=== PATIENT | male | born 1960 | race Caucasian/White ===

== ENCOUNTER 2018-04-06 16:00 | Outpatient (CLI) | payer BC | END 2018-04-06 16:01 | disposition home or self-care (01) | LOC: SLEEPLAB 16:00 | PROVIDERS: ATTEND Internal Medicine | DX: G47.33 Obstructive sleep apnea (adult) (pediatric) (principal); K21.9 Gastro-esophageal reflux disease without esophagitis; I10 Essential (primary) hypertension; E66.9 Obesity, unspecified; R35.1 Nocturia; R06.83 Snoring; R53.83 Other fatigue; R09.89 Other specified symptoms and signs involving the circulatory and respiratory systems; Z68.35 Body mass index [BMI] 35.0-35.9, adult | CPT/HCPCS: 95806 ==

== ENCOUNTER 2018-07-10 07:08 | Outpatient (CLI) | payer BC ==
--- NOTE | 2018-07-10 08:05 | ULT ---
RIGHT UPPER QUADRANT ULTRASOUND: Date: 07/10/18 COMPARISON: None. HISTORY: Elevated liver function tests. TECHNIQUE: Multiplanar Chun scale sonographic imaging of the right upper quadrant provided. FINDINGS: The pancreas is not well seen secondary to bowel gas. The hepatic parenchyma is heterogeneous and ech ogenic, suggesting hepatocellular disease, such as steatosis. No discrete focal liver lesion. No intr ahepatic biliary dilatation. The common bile duct measures 2-3 mm, within normal limits. No gallbladder wall thickening or pericholecystic fluid. No gallstones are seen. The pomology teacher repo rts a negative Brenner's sign. The right kidney measures 14.0 cm craniocaudal dimension and demonstrat es no evidence for stone, hydronephrosis, or mass lesion. IMPRESSION: Heterogeneity of the hepatic parenchyma as detailed above. No evidence for cholelithiasis, cholecysti tis, or biliary dilatation. POS: RAJESH
== END 2018-07-10 07:09 | disposition home or self-care (01) ==
LOC: SCSULT 07:08
PROVIDERS: ATTEND Family Medicine
DX: R74.8 Abnormal levels of other serum enzymes (principal); K76.89 Other specified diseases of liver
CPT/HCPCS: 76705

== ENCOUNTER 2018-10-17 15:05 | Outpatient (CLI) | payer BC | END 2018-10-17 15:06 | disposition home or self-care (01) | LOC: DTY/OP 15:05 | PROVIDERS: ATTEND Family Medicine | DX: E11.9 Type 2 diabetes mellitus without complications (principal) | CPT/HCPCS: 97802 ==

== ENCOUNTER 2019-01-09 08:45 | Outpatient (CLI) | payer BC ==
--- NOTE | 2019-01-09 10:11 | MRI ---
EXAM: MRI left shoulder PROVIDED CLINICAL HISTORY: Pain COMPARISON: None FINDINGS: Evaluation is limited by patient motion. There is a near full thickness, partial width tear involving the distal supraspinatus tendon at the f ootplate. The remainder of the distal conjoined tendon at the footplate appears thickened and of inhomogeneous signal intensity. There is suspected proximal retraction of rotator cable, suspicious f or chronic undersurface tearing and associated granulation tissue. There is focal low-grade partial thickness undersurface tearing involving the posterior infraspinatus tendon just proximal to the foot plate. The long head biceps tendon appears grossly intact and normally located. Glenohumeral articular carti eric and glenoid labrum are not well evaluated on this examination. The amount of fluid within the glenohumeral joint appears physiologic. There is no significant subacr omial subdeltoid bursal fluid present. Acromioclavicular joint osteoarthrosis is demonstrated, producing prominent mass effect upon the subj acent supraspinatus. Rotator cuff muscular volume appears preserved. No focal concerning regional marrow or muscular signal abnormality apparent. The subscapularis and teres minor tendons appear inta ct. IMPRESSION: 1. High-grade partial-thickness bursal surface tear involving the distal supraspinatus tendon at the footplate. This is superimposed upon changes of tendinosis and probable chronic partial thickness undersurface tearing with associated granulation tissue formation. 2. Acromioclavicular joint osteoarthrosis with mass effect upon the subjacent supraspinatus. 3. Limited study due to patient motion.
--- NOTE | 2019-01-09 10:52 | RAD ---
2 VIEWS SKULL: Date: 01/09/19 INDICATION: History of nail injury to the left eye requiring reconstructive surgery. COMPARISON: None. FINDINGS: No retained foreign body is seen within the orbits. Visualized paranasal sinuses are clear. No acute fracture is evident. IMPRESSION: No retained metallic foreign body involving the orbits that would preclude a MRI examination. POS: OFF
== END 2019-01-09 08:46 | disposition home or self-care (01) ==
LOC: BICMRI 08:45
PROVIDERS: ATTEND Family Medicine
DX: M75.102 Unspecified rotator cuff tear or rupture of left shoulder, not specified as traumatic (principal); M19.012 Primary osteoarthritis, left shoulder; S46.812A Strain of other muscles, fascia and tendons at shoulder and upper arm level, left arm, initial encounter
CPT/HCPCS: 70250

== ENCOUNTER 2019-01-22 08:24 | Outpatient (CLI) | payer BC ==
[2019-01-22 10:05] LABS: #Basophils 0.1 thou/uL (0.0-0.2); #Eosinphils 0.1 thou/uL (0.0-0.7); #Lymphocytes 2.8 thou/uL (1.20-3.40); #Monocytes 0.5 thou/uL (0.11-0.59); #Neutrophils 4.4 thou/uL (1.40-6.50); %Basophils 0.7 % (0.0-1.0); %Eosinophils 1.7 % (0.0-10.0); %Lymphocytes 35.5 % (21.0-51.0); %Monocytes 5.8 % (0.0-10.0); %Neutrophils 56.3 % (42.0-75.0); Hemoglobin 16.2 g/dL (14.0-18.0); Mean Corpuscular HGB CONC 35.3 g/dL (32.0-36.0); Mean Platelet Volume 7.6 fL (7.4-10.4); Platelet Count 191 thou/uL (130-400); Red Blood Cell (RBC) Count 5.41 mill/uL (4.70-6.10); White Blood Cell (WBC) Count 7.8 thou/uL (4.8-10.8)
[2019-01-22 10:15] LABS: Anion Gap 12 mmol/L (10-20); BUN (Urea Nitrogen) 22 mg/dL (8.4-25.7); Calc. Creatinine Clearance 0 mL/min (70-130); Calcium 9.4 mg/dL (7.8-10.44); Carbon Dioxide 24 mmol/L (22-29); Chloride 106 mmol/L (98-107); Estimated GFR-MDRD Greater than 90; Glucose 114 mg/dL (70-105); Potassium 4.2 mmol/L (3.5-5.1); Sodium 138 mmol/L (136-145)
== END 2019-01-22 08:25 | disposition home or self-care (01) ==
LOC: LABBT 08:24
PROVIDERS: ATTEND Orthopaedic Surgery
DX: Z01.818 Encounter for other preprocedural examination (principal); M75.102 Unspecified rotator cuff tear or rupture of left shoulder, not specified as traumatic
CPT/HCPCS: 80048; 85025; 93005; 93010

== ENCOUNTER 2019-01-24 06:13 | Day surgery (SDC) | payer BC ==
[2019-01-22 08:35] VITALS: BMI 35.2
[2019-01-24] MEDS ORDERED: Midazolam HCl 2 mg/2 ml Vial ONE (07:40)
[2019-01-24] MEDS ORDERED: Fentanyl 100 MCG/2 ML VIAL ONE (07:40)
[2019-01-24] MEDS ORDERED: Ondansetron PF 4 MG/2 ML Vial IVP PRN (08:43)
[2019-01-24] MEDS ORDERED: HYDROcodone/Acetaminophen 5/325 mg Tablet PO PRN ×2 (08:43)
[2019-01-24] MEDS ORDERED: Promethazine HCl 25 MG/ML VIAL IM PRN (08:43)
[2019-01-24] MEDS ORDERED: Ketorolac Tromethamine 30 MG/ML VIAL IVP PRN (08:43)
[2019-01-24] MEDS ORDERED: Ropivacaine 0.2% 550 ML 550 ML NERVE BLCK SCH (08:43)
[2019-01-24] MEDS ORDERED: traMADol HCl 50 MG TAB PO PRN ×2 (08:43)
[2019-01-24] MEDS ORDERED: Zolpidem Tartrate 5 MG TAB PO PRN (08:43)
[2019-01-24] MEDS ORDERED: Bupivacaine/Epinephrine 0.25% 30 ML VIAL ONE (09:33)
--- NOTE | 2019-01-24 12:06 | OP ---
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 POSTOPERATIVE DIAGNOSES: Left shoulder impingement, rotator cuff tear, biceps tendon instability with degenerative superior labrum anterior and posterior tear, and acromioclavicular joint arthritis. PROCEDURES PERFORMED: 1. Left shoulder arthroscopy with subacromial decompression. 2. Left shoulder arthroscopic rotator cuff. 3. Open biceps tenodesis. 4. Open distal clavicle excision. TAGMAN: Berhane Lea PA-C BLOOD LOSS: 25. COMPLICATIONS: None. ANESTHESIA: He had general anesthetic. He also had a preoperative block. IMPLANTS: Include one BioComposite 4.75 SwiveLock device for the rotator cuff repair and also a 7 x 23 BioComposite Bio-Tenodesis screw. DISPOSITION: He did go to the recovery room in stable condition. INDICATIONS: A 58-year-old male, who has been having problems with the shoulder for quite some time. At this time, he has failed nonoperative treatment. At this time, he opted to have surgery. DESCRIPTION OF PROCEDURE: After all appropriate consent forms were explained and signed, he was taken back to the operating room and at this time, he was given general anesthetic. Once the level of anesthesia was appropriate, the patient was rolled into the right lateral decubitus position with all bony prominences well padded. Axillary roll was placed beneath the right axilla and a vallecillo bag was inflated to hold him in this position. All bony problems were well padded. The arm was then taken through full range of motion and suspended with 15 pounds in standard arthroscopic fashion. The left shoulder and upper extremity were prepped and draped in standard surgical fashion. Bony anatomical landmarks were then drawn out. The subacromial space was infiltrated with Marcaine with epinephrine. Posterior portal was established. Scope was placed into the shoulder joint. Anterior working portal was then made using a needle localization technique. Diagnostic arthroscopy commenced in the joint. The humeral head and glenoid were in excellent condition. The superior labrum had degenerative SLAP tear. Remaining labrum was in pretty good condition. There was significant amount of synovitis circumferentially. The patient did have an undersurface cuff tear, this was debrided back to good tissue and the area of tear was noted with a needle. At this time, the remaining portion of the joint evaluation was found to be normal. We then placed a green cannula anteriorly. We used an 18-gauge needle to place the stitch through the biceps tendon and cut the biceps off using the surface energy device. At this time, scope was replaced into the subacromial space. Lateral working portal was made. Bursa was removed and at this time, where the needle was noted, a probe was used and it went directly down through the scant amount remaining tissue leading us directly into the tear. At this time, the area was debrided with a shaver back to good tissue. We did remove soft tissue off the tuberosity and this tear was felt to be so small that we would do a repair using one inverted horizontal mattress stitch placed down through an anchor laterally. Before doing this, we did remove soft tissue off the undersurface of the acromion. We took down limited the acromion using the shaver and we then did debride the soft tissue from around the distal clavicle and the AC joint. The distal clavicle was found to be pushing directly onto the muscle of the rotator cuff tendon. Again, the needle was used to nicol the AC joint at this time. We then placed a passport cannula laterally and through the passport, we placed an inverted horizontal mattress suture using the FiberTape. This was then pulled down laterally and placed in the 4.75 SwiveLock. This gave us our nice primary repair. We did take the stitch and placed a simple suture directly into the middle portion, where there was a small dog-ear and this flatten this out nicely. At this time, all sutures were cut. Arm was taken through full range of motion. The repair was evaluated through the lateral portal as well finding a nice secure repair. At this time, we then removed the scope. We turned our distal clavicle excision. A 15 blade was used to make an oblique incision over the AC joint down through skin. Bovie was used to coagulate any brisk venous bleeding. Full-thickness periosteal flaps were then taken anterior and posterior to expose the distal clavicle. Hohmann retractors were placed. A saw was used to remove 1 cm distal clavicle. Edges were smoothed off with a rasp and a small amount of bone wax was placed onto the bleeding cancellous bone. This area was thoroughly irrigated and dried. Multiple Vicryl sutures were used to close our periosteal sleeve. A 2-0 Vicryl and nylon sutures were then used to close the skin. We then turned our attention to the biceps. We made another incision with a 15 blade down through skin. Bovie was used again to coagulate any brisk venous bleeding. We sharply entered the deltoid fascia. We then used finger dissection in-line with the fibers to get down to the humerus and the underlying transverse humeral ligament. This was opened up. The biceps tendon was pulled out into the wound. It was then sutured in standard fashion and the intra-articular portion of the biceps was removed. At this time, we sized this to be right at a 7. Therefore, we drilled with a 7.5. We placed our pin. We reamed with a 7.5 to a depth of 25. We then placed a 7 x 23 BioComposite Bio-Tenodesis screw in standard fashion. Sutures were tied over top of this, so that the screw would not back out. We then allowed this to close upon itself. We thoroughly irrigated and dried. A running Vicryl was used to close our deltoid fascia, 2-0 Vicryl, and sutures again were used to close our skin incision. Portals were closed with simple nylon stitch. Bulky sterile dressing was applied. The patient was awakened. He was taken to recovery room in stable condition. All counts were correct at the end of the case and he did receive preoperative IV antibiotics. Job ID: [id number]
[2019-01-24] MEDS ORDERED: Morphine 4 MG/ML VIAL ONE (12:12)
[2019-01-24] MEDS ORDERED: Ketorolac Tromethamine 30 MG/ML VIAL ONE (12:58)
== END 2019-01-24 16:15 | disposition home or self-care (01) ==
LOC: SDC 06:13
PROVIDERS: ATTEND Orthopaedic Surgery
PROC: 0RNK4ZZ Release Left Shoulder Joint, Percutaneous Endoscopic Approach (ICD-10-PCS; principal; 2019-01-24)
PROC: 0RHK44Z Insertion of Internal Fixation Device into Left Shoulder Joint, Percutaneous Endoscopic Approach (ICD-10-PCS; principal; 2019-01-24)
PROC: 3E0T3BZ Introduction of Anesthetic Agent into Peripheral Nerves and Plexi, Percutaneous Approach (ICD-10-PCS; principal; 2019-01-24)
PROC: 0LQ24ZZ Repair Left Shoulder Tendon, Percutaneous Endoscopic Approach (ICD-10-PCS; principal; 2019-01-24)
PROC: 0PBB0ZZ Excision of Left Clavicle, Open Approach (ICD-10-PCS; principal; 2019-01-24)
PROC: 0LS20ZZ Reposition Left Shoulder Tendon, Open Approach (ICD-10-PCS; principal; 2019-01-24)
DX: M25.312 Other instability, left shoulder (principal); M75.112 Incomplete rotator cuff tear or rupture of left shoulder, not specified as traumatic; M25.812 Other specified joint disorders, left shoulder; S43.432A Superior glenoid labrum lesion of left shoulder, initial encounter; M19.012 Primary osteoarthritis, left shoulder; M65.812 Other synovitis and tenosynovitis, left shoulder; G89.18 Other acute postprocedural pain; I10 Essential (primary) hypertension; I48.91 Unspecified atrial fibrillation; K21.9 Gastro-esophageal reflux disease without esophagitis; I42.9 Cardiomyopathy, unspecified; H54.62 Unqualified visual loss, left eye, normal vision right eye; Z79.899 Other long term (current) drug therapy; Z88.5 Allergy status to narcotic agent; Z88.8 Allergy status to other drugs, medicaments and biological substances
CPT/HCPCS: A4306; J0690; J1885; J2250; J2270; J2795; J3010

== ENCOUNTER 2020-05-04 12:01 | Inpatient (IN) | payer BC ==
[~2020-05-04 12:01] MED LIST: Iopamidol-370 76% 500 ML 1 ML ONE
[2020-05-04] MEDS ORDERED: Dexamethasone 10 MG/ML VIAL ONE (12:37)
[2020-05-04 12:53] LABS: #Eosinphils 0.1 thou/uL (0.0-0.7); #Lymphocytes 2.3 thou/uL (1.20-3.40); #Monocytes 0.5 thou/uL (0.11-0.59); #Neutrophils 3.4 thou/uL (1.40-6.50); %Basophils 0.1 % (0.0-1.0); %Eosinophils 1.2 % (0.0-10.0); %Lymphocytes 37.4 % (21.0-51.0); %Monocytes 7.2 % (0.0-10.0); Hemoglobin 15.7 g/dL (14.0-18.0); Mean Corpuscular HGB CONC 35.3 g/dL (32.0-36.0); Mean Corpuscular Hemoglobin 29.1 pg (27.0-31.0); Mean Corpuscular Volume 82.2 fL (78.0-98.0); Mean Platelet Volume 6.9 fL (7.4-10.4); Platelet Count 222 thou/uL (130-400); RBC Distribution Width 11.6 % (11.5-14.5); White Blood Cell (WBC) Count 6.3 thou/uL (4.8-10.8)
[2020-05-04 13:30] LABS: ALT (SGPT) 28 U/L (8-55); AST (SGOT) 21 U/L (5-34); Albumin 4.4 g/dL (3.5-5.0); Alkaline Phosphatase 81 U/L (40-110); Anion Gap 14 mmol/L (10-20); BUN (Urea Nitrogen) 13 mg/dL (8.4-25.7); Bilirubin, Total 0.6 mg/dL (0.2-1.2); Calc. Creatinine Clearance 0 mL/min (70-130); Calcium 8.8 mg/dL (7.8-10.44); Carbon Dioxide 26 mmol/L (22-29); Chloride 105 mmol/L (98-107); Globulin 3.2 g/dL (2.4-3.5); Glucose 88 mg/dL (70-105); Protein, Total 7.6 g/dL (6.0-8.3); Sodium 141 mmol/L (136-145)
--- NOTE | 2020-05-04 14:13 | CT ---
CT PULMONARY ANIOGRAM WITH IV CONTRAST AND 3D MIP RECONSTRUCTIONS: PROVIDED CLINICAL HISTORY: Chest pain, Covid positive. FINDINGS: There is no evidence for central or segmental pulmonary embolus. Vascular calcification including cor onary calcium was demonstrated. There are patchy foci of ground glass opacity with associated interst itial thickening involving the lung parenchyma in a scattered manner bilaterally. There is no pleural fluid or pneumothorax apparent. The airway appears patent with normal caliber. There is no evidence for thoracic lymph node enlargement. The visualized portions of the upper abdomen appear unremarkable. The osseous structures demonstrate no concerning lytic or blastic lesions. IMPRESSION: 1. No evidence for central or segmental pulmonary embolus. 2. Minimal patchy bilateral parenchymal opacities compatible with, but not specific, for Covid pneumo paul. 3. Atherosclerosis including coronary calcium. POS: MIGUELANGEL
--- NOTE | 2020-05-04 15:12 | PDOC.HHP ---
Hospitalist HPI - History of Present Illness SOB History of Present Illness: Mr. Billings is a 59-year-old male with past medical history of atrial fibrillation on flecainide (no AC), hypertension, CHF, acid reflex, left eye blindness who presents to the emergency room for shortness of breath. 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 A repeat test last week turned positive however when he developed symptoms a few days later with myalgias, dry cough progressing to fever and now shortness of breath. Patient reports that he has been keeping track of his O2 saturations at home and that yesterday they dropped to high 80s at rest, further dropping to 80 when he was ambulating to the bathroom. Patient endorses significant cough that is nonproductive. Subjective fevers myalgias chills. Has been taking Tylenol at home. He also endorses a sharp pleuritic pain on deep inspiration. Reports his chest feels sore from coughing. Patient denies nausea vomiting abdominal pain. In emergency room initial vital signs 151/92, 74, 20, 88% on room air, 100% on 2 L nasal cannula. WBC 6.3, H/H 15.7/44.4, platelets 222. BUN/CR 13/0.81. Sodium 141, potassium 4.0. Glucose 88. EKG showed normal sinus rhythm with normal ventricular rate. No ischemic changes. Initial troponin 0 0.021. CTA PE protocol was done which was negative for PE, but did show bilateral peripheral groundglass opacities consistent with COVID-19 pneumonia. Hospitalist ROS - Review of Systems Constitutional: reports: fever, chills, weakness, malaise. denies: sweats, other Eyes: denies: pain, vision change, conjunctivae inflammation, eyelid inflammatio n, redness, other ENT: reports: nose congestion, throat pain. denies: ear pain, ear discharge, nose pain, nose discharge, mouth pain, mouth swelling, throat swelling, other Respiratory: reports: cough, dry, shortness of breath, SOB with excertion, p leuritic pain. denies: hemoptysis, sputum, wheezing, other Cardiovascular: denies: chest pain, palpitations, orthopnea, paroxysmal noc. dyspnea, edema, light headedness, other Gastrointestinal: denies: nausea, vomiting, abdominal pain, diarrhea, con stipation, melena, hematochezia, other Genitourinary: denies: dysuria, frequency, incontinence, hematuria, retention, other Musculoskeletal: denies: neck pain, shoulder pain, arm pain, back pain, hand pain, leg pain, foot pain, other Skin: denies: rash, lesions, danielle, bruising, other Neurological: denies: weakness, numbness, incoordination, change in speech, confusion, seizures, other - Medication Medications: Home medications include Flecainide Vitamin D2 Carvedilol Losartan Protonix Allergies to hydrocodone, codeine Hospitalist History - Past Medical History Other Medical History: History includes A. 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 Multiple left eye surgeries - Family History Other Family History: No pertinent family history - Social History Smoking Status: Never smoker Alcohol: reports: None Drugs: reports: none Living Situation: With Family Activity level: independent ambulation - Exam General Appearance: NAD, awake alert General - other findings: Comfortable on 2 L nasal cannula Eye: PERRL, anicteric sclera ENT: normocephalic atraumatic, no oropharyngeal lesions, moist mucosa Neck: supple, symmetric, no JVD, no thyromegaly, no lymphadenopathy, no carotid bruit Heart: RRR, no murmur, no gallops, no rubs, normal peripheral pulses Respiratory: no wheezes, normal chest expansion, no tachypnea Respiratory - other findings: Rales at bilateral bases Gastrointestinal: soft, non-tender, non-distended, normal bowel sounds, no palpable masses, no hepatomegaly, no splenomegaly, no bruit Extremities: no cyanosis, no clubbing, no edema Skin: normal turgor, no lesions, no rashes Neurological: cranial nerve grossly intact, normal sensation to touch, no weakness, no focal deficits, no new deficit Musculoskeletal: normal tone, normal strength, no muscle wasting Psychiatric: normal affect, normal behavior, A&O x 3 Hospitalist Results - Labs Result Diagrams: 05/04/20 12:37 05/04/20 12:37 Lab results: WBC 6.3 thou/uL (4.8-10.8) 05/04/20 12:37 Hgb 15.7 g/dL (14.0-18.0) 05/04/20 12:37 Hct 44.4 % (42.0-52.0) 05/04/20 12:37 MCV 82.2 fL (78.0-98.0) 05/04/20 12:37 Plt Count 222 thou/uL (130-400) 05/04/20 12:37 Neutrophils % 54.0 % (42.0-75.0) 05/04/20 12:37 Sodium 141 mmol/L (136-145) 05/04/20 12:37 Potassium 4.0 mmol/L (3.5-5.1) 05/04/20 12:37 Chloride 105 mmol/L (98-107) 05/04/20 12:37 Carbon Dioxide 26 mmol/L (22-29) 05/04/20 12:37 BUN 13 mg/dL (8.4-25.7) 05/04/20 12:37 Creatinine 0.81 mg/dL (0.7-1.3) 05/04/20 12:37 Glucose 88 mg/dL (70-105) 05/04/20 12:37 Calcium 8.8 mg/dL (7.8-10.44) 05/04/20 12:37 Total Bilirubin 0.6 mg/dL (0.2-1.2) 05/04/20 12:37 AST 21 U/L (5-34) 05/04/20 12:37 ALT 28 U/L (8-55) 05/04/20 12:37 Alkaline Phosphatase 81 U/L (40-110) 05/04/20 12:37 Troponin I 0.021 ng/mL (< 0.028) 05/04/20 12:37 Serum Total Protein 7.6 g/dL (6.0-8.3) 05/04/20 12:37 Albumin 4.4 g/dL (3.5-5.0) 05/04/20 12:37 Hospitalist H&P A/P - Plan Plan: COVID-19 pneumonia 59-year-old male with past medical history of hypertension, A. fib presents with shortness of breath found to have COVID-19 pneumonia. Symptoms started on April 26 and have been progressive. Initial troponin [address] a PE protocol negative for pulmonary embolism but did show groundglass opacities consistent with COVID-19 pneumonia. Patient now requiring 2 L of oxygen nasal cannula to maintain oxygenation saturation. Patient did desaturate down to 80s on ambulation. 88% on room air at rest. Will start patient on Decadron, see if candidate for remdesivir and obtain baseline inflammatory markers. Plan -Decadron, will see patient is candidate for remdesivir -Supplemental oxygen -Tylenol, Robitussin -Vitamin C, zinc -We will obtain baseline inflammatory markers Acute hypoxic respiratory failure Patient with acute hypoxic respiratory failure secondary to moderate to severe COVID-19 pneumonia. Patient with new oxygen requirement now on 2 L of oxygen nasal cannula to maintain O2 sat. We will continue supplemental oxygen and closely monitor respiratory status. Treatment as above. Plan -Supplemental oxygen -Treatment as above -Closely monitor respiratory status Atrial fibrillation History of A. fib. Not on anticoagulation. Patient is unsure to his medications and reports that he recently had is meds changed. He follows with Dr. Vale. Will confirm home medications. Patient currently in NSR with normal ventricular rate. Hypertension We will continue home losartan. GERD We will continue home Protonix DVT prophylaxisLovenox Full code Case discussed with attending physician, Dr. Hwang.
[2020-05-04] MEDS ORDERED: Acetaminophen 325 MG TAB PO PRN (15:19)
[2020-05-04] MEDS ORDERED: Acetaminophen 650 MG Suppository PR PRN (15:19)
[2020-05-04] MEDS ORDERED: Albuterol 200 PUFF (6.7GM INHALER) INH PRN (15:24)
[2020-05-04 16:51] LABS: SARS-CoV-2 NAA Rapid Test DETECTED (NotDetected)
[2020-05-04 17:40] VITALS: BMI 37.0
[2020-05-04] MEDS: Losartan 25 MG TAB PO SCH (20:50)
[2020-05-04] MEDS: Carvedilol 3.125 MG TAB PO SCH (20:51)
[2020-05-04] MEDS ORDERED: REMDESIVIR (EUA) 200 MG in Sodium Chloride 0.9% 250 ML 210 ML IV SCH (21:00)
--- NOTE | 2020-05-04 21:30 | RAD ---
Chest one view HISTORY: Dyspnea. COMPARISON: Earlier exam on the same date. FINDINGS: Cardiac silhouette is magnified by projection. Pulmonary vasculature is unremarkable. Mediastinum is midline. No lobar consolidation or evidence of pneumothorax. Old right clavicle fracture. IMPRESSION : No acute abnormalities are demonstrated.
[2020-05-05] MEDS: Guaifenesin DM 100-10/5 ML UDCUP PO PRN ×2 (05:04→09:47)
[2020-05-05 07:00] LABS: #Lymphocytes 2.1 thou/uL (1.20-3.40); #Monocytes 0.5 thou/uL (0.11-0.59); #Neutrophils 3.8 thou/uL (1.40-6.50); %Basophils 0.2 % (0.0-1.0); %Eosinophils 0.4 % (0.0-10.0); %Lymphocytes 32.6 % (21.0-51.0); %Monocytes 7.8 % (0.0-10.0); Hemoglobin 14.2 g/dL (14.0-18.0); Mean Corpuscular HGB CONC 34.6 g/dL (32.0-36.0); Mean Corpuscular Hemoglobin 28.4 pg (27.0-31.0); Mean Platelet Volume 7.2 fL (7.4-10.4); Platelet Count 215 thou/uL (130-400); RBC Distribution Width 11.5 % (11.5-14.5); White Blood Cell (WBC) Count 6.5 thou/uL (4.8-10.8)
[2020-05-05 07:21] LABS: Anion Gap 15 mmol/L (10-20); BUN (Urea Nitrogen) 15 mg/dL (8.4-25.7); Calc. Creatinine Clearance 196 mL/min (70-130); Calcium 8.5 mg/dL (7.8-10.44); Carbon Dioxide 22 mmol/L (22-29); Chloride 105 mmol/L (98-107); Glucose 133 mg/dL (70-105); Sodium 138 mmol/L (136-145)
[2020-05-05 07:22] LABS: ALT (SGPT) 25 U/L (8-55); AST (SGOT) 17 U/L (5-34); Albumin 4.1 g/dL (3.5-5.0); Alkaline Phosphatase 72 U/L (40-110); Bilirubin, Direct 0.2 mg/dL (0.1-0.3); Bilirubin, Total 0.5 mg/dL (0.2-1.2); Protein, Total 6.9 g/dL (6.0-8.3)
--- NOTE | 2020-05-05 09:04 | PDOC.HOSPP ---
- Subjective Encounter Date: 05/05/20 Encounter Time: 11:00 Subjective: Patient with improved shortness of breath on oxygen. Still with significant cough. His cough medicine does not seem to last very long no more than 2 hours each time he takes it. - Objective Vital Signs & Weight: Vital Signs (12 hours) Temp Pulse Resp BP Pulse Ox 05/05/20 07:29 98.6 F 59 L 18 149/67 H 95 05/05/20 04:49 97.9 F 59 L 19 121/65 97 05/05/20 00:09 98.2 F 62 18 135/84 97 Weight Weight 273 lb 8 oz Result Diagrams: 05/05/20 06:28 05/05/20 06:28 Hospitalist ROS - Review of Systems Constitutional: denies: fever, chills Respiratory: reports: cough, shortness of breath Cardiovascular: denies: chest pain, palpitations Gastrointestinal: denies: nausea, vomiting, abdominal pain - Medication Medications: Active Medications Generic Name Dose Route Start Last Admin Trade Name Freq PRN Reason Stop Dose Admin Carvedilol 3.125 mg 05/04/20 21:00 05/04/20 20:51 Carvedilol 3.125 Mg Tab PO 3.125 mg HS SERENE Administration Guaifenesin/Dextromethorphan 15 ml 05/04/20 15:19 05/05/20 05:04 Guaifenesin Dm 100-10/5 Ml Udcup PO 15 ml Q4H PRN Administration Cough Losartan Potassium 25 mg 05/04/20 21:00 05/04/20 20:50 Losartan 25 Mg Tab PO 25 mg HS SERENE Administration Pantoprazole Sodium 40 mg 05/04/20 21:00 05/04/20 20:51 Pantoprazole 40 Mg Tab PO 40 mg HS SERENE Administration - Exam General Appearance: NAD, awake alert ENT: moist mucosa Heart: RRR, no murmur, no gallops, no rubs Respiratory: CTAB, no wheezes, no rales, no ronchi Gastrointestinal: soft, non-tender, non-distended, normal bowel sounds Extremities: no edema Psychiatric: normal affect, normal behavior, A&O x 3 Hosp A/P - Plan COVID-19 pneumonia 59-year-old male with past medical history of hypertension, A. fib presents with shortness of breath found to have COVID-19 pneumonia. Symptoms started on April 26 and have been progressive. Initial troponin [address] a PE protocol negative for pulmonary embolism but did show mild groundglass opac ities consistent with COVID-19 pneumonia. Patient now requiring 2 L of oxygen nasal cannula to maintain oxygenation saturation. Patient did desaturate down to 80s on ambulation. 88% on room air at rest. Will start patient on Decadron, see if candidate for remdesivir and obtain baseline inflammatory markers. Plan -Decadron, remdesivir day 2/5 -Supplemental oxygen -Tylenol, Robitussin -Vitamin C, zinc -We will obtain baseline inflammatory markers and follow Acute hypoxic respiratory failure Patient with acute hypoxic respiratory failure secondary to mild to moderate COVID-19 pneumonia. Patient with new oxygen requirement now on 2 L of oxygen nasal cannula to maintain O2 sat. We will continue supplemental oxygen and closely monitor respiratory status. Treatment as above. Plan -Supplemental oxygen -Treatment as above -Closely monitor respiratory status Atrial fibrillation History of A. fib. Not on anticoagulation. He follows with Dr. Vale. Restarting Flecanide. Stable in NSR. Hypertension We will continue home losartan. 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 Vale due to getting Covid. Will see if we can get patient's up-to-date medicines from Dr. Vale's office. GERD We will continue home Protonix DVT prophylaxisLovenox Full code
[2020-05-05] MEDS: Dexamethasone 4 MG TAB PO SCH (09:32)
[2020-05-05] MEDS: Enoxaparin Sodium 40 MG/0.4 ML SYRINGE SC SCH (09:35)
[2020-05-05] MEDS: Zinc Sulfate 220 MG CAP PO SCH (09:35)
[2020-05-05] MEDS: Ascorbic Acid 500 mg Chewable Tablet PO SCH (09:35)
[2020-05-05] MEDS: Benzonatate 100 MG CAP PO PRN (14:12)
[2020-05-05] MEDS ORDERED: Flecainide 50 MG TAB PO SCH (21:00)
[2020-05-05] MEDS: Losartan 25 MG TAB PO SCH (22:06)
[2020-05-05] MEDS: REMDESIVIR (EUA) 100 MG in Sodium Chloride 0.9% 250 ML 230 ML IV SCH (22:06)
[2020-05-05] MEDS: guaiFENesin ER 600 MG TAB PO SCH (22:07)
[2020-05-05] MEDS: Carvedilol 3.125 MG TAB PO SCH (22:07)
[2020-05-05] MEDS: Multivit, Therapeutic 1 TAB PO SCH (22:07)
[2020-05-06 06:21] LABS: #Lymphocytes 2.6 thou/uL (1.20-3.40); #Monocytes 0.6 thou/uL (0.11-0.59); #Neutrophils 4.7 thou/uL (1.40-6.50); %Basophils 0.3 % (0.0-1.0); %Eosinophils 0.4 % (0.0-10.0); %Lymphocytes 32.4 % (21.0-51.0); %Monocytes 7.3 % (0.0-10.0); %Neutrophils 59.6 % (42.0-75.0); Hemoglobin 14.1 g/dL (14.0-18.0); Mean Corpuscular HGB CONC 35.5 g/dL (32.0-36.0); Mean Corpuscular Hemoglobin 29.4 pg (27.0-31.0); Mean Corpuscular Volume 82.6 fL (78.0-98.0); Mean Platelet Volume 7.1 fL (7.4-10.4); Platelet Count 225 thou/uL (130-400); RBC Distribution Width 11.4 % (11.5-14.5); Red Blood Cell (RBC) Count 4.79 mill/uL (4.70-6.10); White Blood Cell (WBC) Count 7.9 thou/uL (4.8-10.8)
[2020-05-06 06:42] LABS: Anion Gap 12 mmol/L (10-20); BUN (Urea Nitrogen) 14 mg/dL (8.4-25.7); Calc. Creatinine Clearance 172 mL/min (70-130); Calcium 8.7 mg/dL (7.8-10.44); Carbon Dioxide 27 mmol/L (22-29); Chloride 105 mmol/L (98-107); Glucose 119 mg/dL (70-105); Sodium 140 mmol/L (136-145)
[2020-05-06] MEDS: Zinc Sulfate 220 MG CAP PO SCH (08:15)
[2020-05-06] MEDS: Dexamethasone 4 MG TAB PO SCH (08:16)
[2020-05-06] MEDS: Ascorbic Acid 500 mg Chewable Tablet PO SCH (08:18)
[2020-05-06] MEDS: guaiFENesin ER 600 MG TAB PO SCH ×2 (08:18→20:02)
[2020-05-06] MEDS: Enoxaparin Sodium 40 MG/0.4 ML SYRINGE SC SCH (08:19)
--- NOTE | 2020-05-06 08:28 | PDOC.HOSPP ---
- Subjective Encounter Date: 05/06/20 Encounter Time: 11:15 Subjective: Patient reports some improvement in his cough. No significant shortness of breath at rest on oxygen. He does feel a little bit weak with ambulation but is able to ambulates steadily. - Objective Vital Signs & Weight: Vital Signs (12 hours) Temp Pulse Resp BP Pulse Ox 05/06/20 08:00 97.8 F 65 16 148/63 H 96 05/06/20 04:00 97.9 F 58 L 18 148/82 H 98 05/06/20 00:00 97.4 F L 54 L 18 144/79 H 98 Weight Weight 273 lb 8 oz Result Diagrams: 05/06/20 05:55 05/06/20 05:55 Hospitalist ROS - Review of Systems Constitutional: denies: fever, chills Respiratory: reports: cough. denies: shortness of breath, SOB with excertion Cardiovascular: denies: chest pain, palpitations Gastrointestinal: denies: nausea, vomiting, abdominal pain Neurological: reports: weakness - Medication Medications: Active Medications Generic Name Dose Route Start Last Admin Trade Name Freq PRN Reason Stop Dose Admin Ascorbic Acid 1,000 mg 05/05/20 09:00 05/05/20 09:35 Ascorbic Acid 500 Mg Chewable Tablet PO 1,000 mg DAILY SERENE Administration Benzonatate 200 mg 05/05/20 13:24 05/05/20 14:12 Benzonatate 100 Mg Cap PO 200 mg TIDPRN PRN Administration Cough Carvedilol 3.125 mg 05/04/20 21:00 05/05/20 22:07 Carvedilol 3.125 Mg Tab PO 3.125 mg HS SERENE Administration Dexamethasone 6 mg 05/05/20 08:00 05/05/20 09:32 Dexamethasone 4 Mg Tab PO 6 mg QAM-WM SERENE Administration Enoxaparin Sodium 40 mg 05/05/20 09:00 05/05/20 09:35 Enoxaparin Sodium 40 Mg/0.4 Ml Syringe SC 40 mg 0900 SERENE Administration Guaifenesin 1,200 mg 05/05/20 21:00 05/05/20 22:07 Guaifenesin Er 600 Mg Tab PO 1,200 mg Q12HR SERENE Administration Remdesivir 100 mg/ Sodium 250 mls @ 250 mls/hr 05/05/20 21:00 05/05/20 22:06 Chloride IV 05/08/20 21:59 250 mls 2100 SERENE Administration Losartan Potassium 25 mg 05/04/20 21:00 05/05/20 22:06 Losartan 25 Mg Tab PO 25 mg HS SERENE Administration Multivitamins 1 tab 05/05/20 21:00 05/05/20 22:07 Multivit, Therapeutic 1 Tab PO 1 tab HS SERENE Administration Pantoprazole Sodium 40 mg 05/04/20 21:00 05/05/20 22:07 Pantoprazole 40 Mg Tab PO 40 mg HS SERENE Administration Zinc Sulfate 220 mg 05/05/20 09:00 05/05/20 09:35 Zinc Sulfate 220 Mg Cap PO 220 mg DAILY SERENE Administration Hospitalist Exam Vitals: Vital Signs (12 hours) Temp Pulse Resp BP Pulse Ox 05/06/20 08:00 97.8 F 65 16 148/63 H 96 05/06/20 04:00 97.9 F 58 L 18 148/82 H 98 05/06/20 00:00 97.4 F L 54 L 18 144/79 H 98 Weight Weight 273 lb 8 oz General Appearance: NAD, awake alert ENT: moist mucosa Heart: RRR, no murmur, no gallops, no rubs Respiratory: no wheezes, no ronchi, no tachypnea Respiratory - other findings: Minimal bibasilar Rales with good air movement Gastrointestinal: soft, non-tender, non-distended, normal bowel sounds Extremities: no edema Psychiatric: normal affect, normal behavior, A&O x 3 Hosp A/P - Plan COVID-19 pneumonia 59-year-old male with past medical history of hypertension, A. fib presents with shortness of breath found to have COVID-19 pneumonia. Symptoms started on Ja nuary and have been progressive. Initial troponin [address] a PE protocol negative for pulmonary embolism but did show mild groundglass opacities consistent with COVID-19 pneumonia. Patient now requiring 2 L of oxygen nasal cannula to maintain oxygenation saturation. Patient did desaturate down to 80s on ambulation. 88% on room air at rest. Will start patient on Decadron, remdesivir and obtain baseline inflammatory markers. Plan -Decadron, remdesivir day 3/5 -Supplemental oxygen- only 1L [place] O2 currently -Tylenol, Robitussin -Vitamin C, zinc -We will check inflammatory markers in the morning Acute hypoxic respiratory failure Patient with acute hypoxic respiratory failure secondary to mild to moderate COVID-19 pneumonia. Patient with new oxygen requirement now on 1 L of oxygen nasal cannula to maintain O2 sat. We will continue supplemental oxygen and closely monitor respiratory status. Treatment as above. Plan -Supplemental oxygen -Treatment as above -Closely monitor respiratory status Atrial fibrillation History of A. fib. Not on anticoagulation. He follows with Dr. Rossi. Stable in NSR. Per Dr. Rossi patient hasn't been following up as directed so he wanted to stop the Flecanide. No other new meds. Hypertension We will continue home losartan. Confirmed meds with Dr. Rossi. GERD We will continue home Protonix DVT prophylaxisLovenox Full code
[2020-05-06] MEDS ORDERED: Ergocalciferol 1.25 MG(50,000 UNITS) CAP PO SCH (09:00)
[2020-05-06] MEDS: Carvedilol 3.125 MG TAB PO SCH (20:02)
[2020-05-06] MEDS: Multivit, Therapeutic 1 TAB PO SCH (20:02)
[2020-05-06] MEDS: Losartan 25 MG TAB PO SCH (20:02)
[2020-05-06] MEDS: REMDESIVIR (EUA) 100 MG in Sodium Chloride 0.9% 250 ML 230 ML IV SCH (20:02)
[2020-05-07 06:20] LABS: #Lymphocytes 2.6 thou/uL (1.20-3.40); #Monocytes 0.6 thou/uL (0.11-0.59); %Basophils 0.3 % (0.0-1.0); %Eosinophils 0.4 % (0.0-10.0); %Lymphocytes 35.5 % (21.0-51.0); %Monocytes 8.3 % (0.0-10.0); %Neutrophils 55.4 % (42.0-75.0); Hemoglobin 14.1 g/dL (14.0-18.0); Mean Corpuscular HGB CONC 36.1 g/dL (32.0-36.0); Mean Corpuscular Hemoglobin 30.3 pg (27.0-31.0); Mean Corpuscular Volume 83.9 fL (78.0-98.0); Platelet Count 215 thou/uL (130-400); RBC Distribution Width 11.4 % (11.5-14.5); Red Blood Cell (RBC) Count 4.65 mill/uL (4.70-6.10); White Blood Cell (WBC) Count 7.2 thou/uL (4.8-10.8)
[2020-05-07 06:42] LABS: Anion Gap 14 mmol/L (10-20); BUN (Urea Nitrogen) 18 mg/dL (8.4-25.7); Calc. Creatinine Clearance 179 mL/min (70-130); Calcium 8.6 mg/dL (7.8-10.44); Carbon Dioxide 24 mmol/L (22-29); Chloride 105 mmol/L (98-107); Glucose 108 mg/dL (70-105); Potassium 4.3 mmol/L (3.5-5.1); Sodium 139 mmol/L (136-145)
--- NOTE | 2020-05-07 07:43 | PDOC.HOSPP ---
- Subjective Encounter Date: 05/07/20 Encounter Time: 09:00 Subjective: Patient feeling much better. He was taken off oxygen by nursing this morning. He has no shortness of breath currently. His remdesivir dose dose is due this evening. - Objective Vital Signs & Weight: Vital Signs (12 hours) Temp Pulse Resp BP BP Pulse Ox 05/07/20 04:00 97.4 F L 54 L 20 150/76 H 97 05/06/20 20:00 97.9 F 60 18 156/74 H 98 Weight Weight 273 lb 8 oz Result Diagrams: 05/07/20 05:58 05/07/20 05:58 Hospitalist ROS - Review of Systems Constitutional: denies: fever, chills Respiratory: reports: cough (Minimal). denies: shortness of breath, SOB with excertion Cardiovascular: denies: chest pain, palpitations Gastrointestinal: denies: nausea, vomiting, abdominal pain - Medication Medications: Active Medications Generic Name Dose Route Start Last Admin Trade Name Freq PRN Reason Stop Dose Admin Ascorbic Acid 1,000 mg 05/05/20 09:00 05/06/20 08:18 Ascorbic Acid 500 Mg Chewable Tablet PO 1,000 mg DAILY SERENE Administration Benzonatate 200 mg 05/05/20 13:24 05/05/20 14:12 Benzonatate 100 Mg Cap PO 200 mg TIDPRN PRN Administration Cough Carvedilol 3.125 mg 05/04/20 21:00 05/06/20 20:02 Carvedilol 3.125 Mg Tab PO 3.125 mg HS SERENE Administration Dexamethasone 6 mg 05/05/20 08:00 05/06/20 08:16 Dexamethasone 4 Mg Tab PO 6 mg QAM-WM SERENE Administration Enoxaparin Sodium 40 mg 05/05/20 09:00 05/06/20 08:19 Enoxaparin Sodium 40 Mg/0.4 Ml Syringe SC 40 mg 0900 SERENE Administration Ergocalciferol 1.25 mg 05/06/20 09:00 05/06/20 08:19 Ergocalciferol 1.25 Mg(50,000 Units) Cap PO 1.25 mg Q3D SERENE Administration Guaifenesin 1,200 mg 05/05/20 21:00 05/06/20 20:02 Guaifenesin Er 600 Mg Tab PO 1,200 mg Q12HR SERENE Administration Remdesivir 100 mg/ Sodium 250 mls @ 250 mls/hr 05/05/20 21:00 05/06/20 20:02 Chloride IV 05/08/20 21:59 250 mls 2100 SERENE Administration Losartan Potassium 25 mg 05/04/20 21:00 05/06/20 20:02 Losartan 25 Mg Tab PO 25 mg HS SERENE Administration Multivitamins 1 tab 05/05/20 21:00 05/06/20 20:02 Multivit, Therapeutic 1 Tab PO 1 tab HS SERENE Administration Pantoprazole Sodium 40 mg 05/04/20 21:00 05/06/20 20:02 Pantoprazole 40 Mg Tab PO 40 mg HS SERENE Administration Zinc Sulfate 220 mg 05/05/20 09:00 05/06/20 08:15 Zinc Sulfate 220 Mg Cap PO 220 mg DAILY SERENE Administration Hospitalist Exam Vitals: Vital Signs (12 hours) Temp Pulse Resp BP BP Pulse Ox 05/07/20 04:00 97.4 F L 54 L 20 150/76 H 97 05/06/20 20:00 97.9 F 60 18 156/74 H 98 Weight Weight 273 lb 8 oz General Appearance: NAD, awake alert ENT: moist mucosa Heart: RRR, no murmur, no gallops, no rubs Respiratory: CTAB, no wheezes, no rales, no ronchi Gastrointestinal: soft, non-tender, non-distended, normal bowel sounds Extremities: no edema Psychiatric: normal affect, normal behavior, A&O x 3 Hosp A/P - Plan COVID-19 pneumonia 59-year-old male with past medical history of hypertension, A. fib presents with shortness of breath found to have COVID-19 pneumonia. Symptoms started on April 26 and have been progressive. Initial troponin [address] a PE protocol negative for pulmonary embolism but did show mild groundglass opacities consistent with COVID-19 pneumonia. Patient was requiring 2 L of oxygen nasal cannula to maintain oxygenation saturation. Patient did desaturate down to 80s on ambulation. 88% on room air at rest. Will start patient on Decadron, remdesivir and obtain baseline inflammatory markers. Plan -Decadron, remdesivir day 4/5 -Supplemental oxygen-taken off oxygen this morning -Tylenol, Robitussin -Vitamin C, zinc -Inflammatory markers negative this morning Acute hypoxic respiratory failure Patient with acute hypoxic respiratory failure secondary to mild to moderate COVID-19 pneumonia. Patient with new oxygen requirement now on room air this morning. We will continue supplemental oxygen and closely monitor respiratory status. Treatment as above. Plan -Supplemental oxygen as needed -Treatment as above -Closely monitor respiratory status Atrial fibrillation History of A. fib. Not on anticoagulation. He follows with Dr. Rossi. Stable in NSR. Per Dr. Rossi patient hasn't been following up as directed so he wanted to stop the Flecanide. No other new meds. Hypertension We will continue home losartan. Confirmed meds with Dr. Rossi. GERD We will continue home Protonix Disposition Patient can likely go home on home tomorrow morning if continues to saturate well off of oxygen. In that case does not need his last dose of remdesivir tomorrow evening. If still needs 1 or 2 or 2 L of oxygen can go home with oxygen tomorrow. DVT prophylaxisLovenox Full code
[2020-05-07] MEDS: Dexamethasone 4 MG TAB PO SCH (09:12)
[2020-05-07] MEDS: Zinc Sulfate 220 MG CAP PO SCH (09:13)
[2020-05-07] MEDS: Ascorbic Acid 500 mg Chewable Tablet PO SCH (09:13)
[2020-05-07] MEDS: guaiFENesin ER 600 MG TAB PO SCH ×2 (09:13→20:38)
[2020-05-07] MEDS: Enoxaparin Sodium 40 MG/0.4 ML SYRINGE SC SCH (09:13)
[2020-05-07] MEDS: Benzonatate 100 MG CAP PO PRN ×2 (09:17→20:36)
[2020-05-07] MEDS: Losartan 25 MG TAB PO SCH (20:35)
[2020-05-07] MEDS: Multivit, Therapeutic 1 TAB PO SCH (20:35)
[2020-05-07] MEDS: REMDESIVIR (EUA) 100 MG in Sodium Chloride 0.9% 250 ML 230 ML IV SCH (20:35)
[2020-05-07] MEDS: Carvedilol 3.125 MG TAB PO SCH (20:36)
[2020-05-08 06:58] LABS: #Monocytes 0.8 thou/uL (0.11-0.59); #Neutrophils 5.3 thou/uL (1.40-6.50); %Basophils 0.1 % (0.0-1.0); %Eosinophils 0.2 % (0.0-10.0); %Lymphocytes 33.2 % (21.0-51.0); %Monocytes 8.3 % (0.0-10.0); %Neutrophils 58.2 % (42.0-75.0); Hemoglobin 14.4 g/dL (14.0-18.0); Mean Corpuscular HGB CONC 36.3 g/dL (32.0-36.0); Mean Corpuscular Hemoglobin 30.3 pg (27.0-31.0); Mean Corpuscular Volume 83.5 fL (78.0-98.0); Mean Platelet Volume 7.3 fL (7.4-10.4); Platelet Count 233 thou/uL (130-400); RBC Distribution Width 11.4 % (11.5-14.5); Red Blood Cell (RBC) Count 4.74 mill/uL (4.70-6.10); White Blood Cell (WBC) Count 9.1 thou/uL (4.8-10.8)
[2020-05-08 07:16] LABS: Anion Gap 14 mmol/L (10-20); BUN (Urea Nitrogen) 18 mg/dL (8.4-25.7); Calc. Creatinine Clearance 199 mL/min (70-130); Calcium 8.7 mg/dL (7.8-10.44); Carbon Dioxide 24 mmol/L (22-29); Chloride 107 mmol/L (98-107); Glucose 107 mg/dL (70-105); Sodium 141 mmol/L (136-145)
[2020-05-08] MEDS: Dexamethasone 4 MG TAB PO SCH (08:38)
[2020-05-08] MEDS: Zinc Sulfate 220 MG CAP PO SCH (08:39)
[2020-05-08] MEDS: guaiFENesin ER 600 MG TAB PO SCH (08:39)
[2020-05-08] MEDS: Ascorbic Acid 500 mg Chewable Tablet PO SCH (08:40)
[2020-05-08] MEDS: Benzonatate 100 MG CAP PO PRN (08:40)
[2020-05-08] MEDS: Enoxaparin Sodium 40 MG/0.4 ML SYRINGE SC SCH (08:41)
--- NOTE | 2020-05-08 15:31 | PDOC.DS.DS ---
Provider Date of Admission: 05/04/20 17:02 Date of Discharge: 05/08/20 Admitting Provider: Gio Hwang MD Primary Care Physician: Deandre Falk MD Course Hospital Course: 59-year-old male with history of essential hypertension, atrial fibrillation, admitted for acute hypoxic respiratory failure secondary to Covid pneumonia. On admission, was on dexamethasone, and remdesivir antibiotics with improvement in symptoms. Hypoxia was resolved at time of discharge with saturation in the low 90s on room air. Discharged home with instructions to follow-up with PCP within 1 week post discharge. Resuscitation Status: 05/04/20 15:19 Resuscitation Status Routine Co-Sign Provider: Resuscitation Status: FULL: Full Resuscitation Lab Results: 05/08/20 06:13 05/08/20 06:13 Abnormal Lab Results - Last 48 hrs 05/07/20 05:58: RBC 4.65 L, Hct 39.0 L, MCHC 36.1 H, RDW 11.4 L, MPV 7.0 L, Monocytes # 0.6 H 05/07/20 05:58: D-Dimer Less than 0.27 L 05/08/20 06:13: Hct 39.6 L, MCHC 36.3 H, RDW 11.4 L, MPV 7.3 L, Monocytes # 0.8 H Vitals: Vital Signs (12 hours) Temp Pulse Resp BP BP Pulse Ox 05/08/20 08:00 97.9 F 97 05/08/20 07:58 97.9 F 60 20 174/91 H 97 05/08/20 04:00 97.9 F 58 L 18 160/75 H 98 Weight Weight 273 lb 8 oz Physical Exam: The patient was seen and examined on the day of discharge. General Appearance: NAD, awake alert Eye: PERRL, anicteric sclera ENT: normocephalic atraumatic Neck: supple Respiratory: normal chest expansion Extremities: no cyanosis Skin: normal turgor Neurological: cranial nerve grossly intact PSYCH: normal affect, normal behavior Plan Home Medications: Medication Instructions Recorded Confirmed Type Pantoprazole [Protonix] 40 mg PO HS 10/21/05/04/20 History Carvedilol 1 tab PO HS 01/23/19 05/04/20 History Flecainide [Tambocor] 50 mg PO HS 01/23/19 05/04/20 History Losartan [Cozaar] 25 mg PO HS 01/23/19 05/04/20 History Multivitamin [Multi-Vitamin Daily] 1 tab PO HS 01/23/19 05/04/20 History Ergocalciferol (Vitamin D2) 50,000 unit PO SEEPHYS 05/04/20 05/04/20 History [Vitamin D2] Ascorbic Acid [Vitamin C] 1,000 mg PO DAILY #0 tab 05/08/20 Rx Allergies: hydrocodone [From [facility]] Allergy (Verified 01/22/19 08:36) ITCHING Activity:: Activity as Tolerated Referrals: Deandre Falk MD [Primary Care Provider] - 7 Days Disposition: HOME Quality CORE MEASURES:: N/A
[2020-05-08 15:48] VITALS: BP 176/86; TEMP 97.7
== END 2020-05-08 13:45 | disposition home or self-care (01) | DRG 177 ==
LOC: ERS 12:01 → T4-B 17:02
PROVIDERS: ADMIT Internal Medicine; ATTEND Internal Medicine
PROC: 8E0ZXY6 Isolation (ICD-10-PCS; principal; 2020-05-04)
PROC: XW043E5 Introduction of Remdesivir Anti-infective into Central Vein, Percutaneous Approach, New Technology Group 5 (ICD-10-PCS; 2020-05-04)
DX: U07.1 COVID-19 (principal); J96.01 Acute respiratory failure with hypoxia; J12.82 Pneumonia due to coronavirus disease 2019; I10 Essential (primary) hypertension; I48.91 Unspecified atrial fibrillation; K21.9 Gastro-esophageal reflux disease without esophagitis; H54.40 Blindness, one eye, unspecified eye; Z88.5 Allergy status to narcotic agent; Z79.899 Other long term (current) drug therapy
CPT/HCPCS: 0240U; 36415; 71045; 71275; 80048; 80053; 80076; 84484; 85025; 85379; 86140; 93005; 96374; J1100; J1650; J7050; J8540; Q9967

== ENCOUNTER 2021-04-06 07:19 | Emergency (ER) | payer BC ==
[2021-04-06] MEDS ORDERED: cefTRIAXone\\ROCEPHIN 1 GM VIAL ONE (07:42)
[2021-04-06] MEDS ORDERED: Dexamethasone 10 MG/ML VIAL ONE (07:42)
[2021-04-06 07:48] LABS: #Lymphocytes 1.8 thou/uL (1.20-3.40); #Monocytes 0.5 thou/uL (0.11-0.59); #Neutrophils 3.5 thou/uL (1.40-6.50); %Basophils 0.3 % (0.0-1.0); %Eosinophils 0.5 % (0.0-10.0); %Lymphocytes 30.2 % (21.0-51.0); %Monocytes 9.2 % (0.0-10.0); %Neutrophils 59.8 % (42.0-75.0); Hemoglobin 15.1 g/dL (14.0-18.0); Mean Corpuscular HGB CONC 34.9 g/dL (32.0-36.0); Mean Corpuscular Hemoglobin 29.6 pg (27.0-31.0); Mean Corpuscular Volume 84.6 fL (78.0-98.0); Mean Platelet Volume 6.5 fL (7.4-10.4); Platelet Count 183 thou/uL (130-400); Red Blood Cell (RBC) Count 5.12 mill/uL (4.70-6.10); White Blood Cell (WBC) Count 5.8 thou/uL (4.8-10.8)
[2021-04-06 08:10] LABS: ALT (SGPT) 23 U/L (8-55); AST (SGOT) 20 U/L (5-34); Albumin 4.3 g/dL (3.5-5.0); Alkaline Phosphatase 78 U/L (40-110); Anion Gap 12 mmol/L (10-20); BUN (Urea Nitrogen) 14 mg/dL (8.4-25.7); Bilirubin, Total 0.5 mg/dL (0.2-1.2); CK (CPK) 171 U/L (30-200); Calc. Creatinine Clearance 0 mL/min (70-130); Calcium 9.1 mg/dL (7.8-10.44); Carbon Dioxide 25 mmol/L (22-29); Chloride 104 mmol/L (98-107); Globulin 3.1 g/dL (2.4-3.5); Glucose 114 mg/dL (70-105); Lipase 13 U/L (8-78); Potassium 4.1 mmol/L (3.5-5.1); Protein, Total 7.4 g/dL (6.0-8.3); Sodium 137 mmol/L (136-145)
[2021-04-06 08:33] LABS: CKMB 2.4 ng/mL (0-6.6)
[2021-04-06 08:39] LABS: SARS-CoV-2 NAA Rapid Test DETECTED (NotDetected)
== END 2021-04-06 09:00 | disposition home or self-care (01) ==
LOC: ERS 07:19
DX: U07.1 COVID-19 (principal); I10 Essential (primary) hypertension; K21.9 Gastro-esophageal reflux disease without esophagitis; Z79.899 Other long term (current) drug therapy
CPT/HCPCS: 0240U; 71045; 80053; 82550; 82553; 83690; 84484; 85025; 85379; 93005; 96365; 96375; J0696; J1100

== ENCOUNTER 2021-12-07 18:36 | Inpatient (IN) | payer BC ==
[2021-12-07 19:10] LABS: #Eosinphils 0.3 thou/uL (0.0-0.7); #Lymphocytes 2.5 thou/uL (1.20-3.40); #Monocytes 0.7 thou/uL (0.11-0.59); %Basophils 0.1 % (0.0-1.0); %Lymphocytes 26.1 % (21.0-51.0); %Monocytes 7.6 % (0.0-10.0); %Neutrophils 63.2 % (42.0-75.0); Hemoglobin 16.7 g/dL (14.0-18.0); Mean Corpuscular HGB CONC 34.9 g/dL (32.0-36.0); Mean Corpuscular Hemoglobin 29.6 pg (27.0-31.0); Mean Corpuscular Volume 84.9 fL (78.0-98.0); Mean Platelet Volume 7.1 fL (7.4-10.4); Platelet Count 231 thou/uL (130-400); RBC Distribution Width 12.4 % (11.5-14.5); Red Blood Cell (RBC) Count 5.64 mill/uL (4.70-6.10); White Blood Cell (WBC) Count 9.6 thou/uL (4.8-10.8)
[2021-12-07] MEDS ORDERED: Aspirin Chewable 81 MG TAB ONE (19:27)
[2021-12-07 19:31] LABS: ALT (SGPT) 23 U/L (8-55); AST (SGOT) 17 U/L (5-34); Albumin 4.3 g/dL (3.5-5.0); Alkaline Phosphatase 74 U/L (40-110); Anion Gap 15 mmol/L (10-20); BUN (Urea Nitrogen) 17 mg/dL (8.4-25.7); Bilirubin, Total 0.9 mg/dL (0.2-1.2); Calc. Creatinine Clearance 0 mL/min (70-130); Calcium 8.9 mg/dL (7.8-10.44); Carbon Dioxide 24 mmol/L (22-29); Chloride 103 mmol/L (98-107); Estimated GFR 92; Globulin 2.8 g/dL (2.4-3.5); Glucose 123 mg/dL (70-105); Lipase 15 U/L (8-78); Potassium 4.2 mmol/L (3.5-5.1); Protein, Total 7.1 g/dL (6.0-8.3); Sodium 138 mmol/L (136-145)
[2021-12-07] MEDS ORDERED: Ondansetron PF 4 MG/2 ML Vial IVP PRN (21:15)
[2021-12-07] MEDS ORDERED: Acetaminophen 325 MG TAB PO PRN (21:15)
[2021-12-07] MEDS ORDERED: Ondansetron ODT 4 MG TAB SL PRN (21:15)
[2021-12-07 22:44] VITALS: BMI 37.5
[2021-12-07] MEDS ORDERED: Nitroglycerin 0.4 MG TAB (25 Tab Bottle) SL PRN (22:57)
[2021-12-07] MEDS ORDERED: Acetaminophen 650 MG Suppository PR PRN (22:57)
[2021-12-07] MEDS ORDERED: Furosemide 40 MG/4 ML VIAL SLOW IVP SCH (23:30)
[2021-12-07] MEDS ORDERED: Electrolyte Replacement Protocol 1 EACH FS SCH (23:30)
[2021-12-07 23:33] LABS: Troponin I 0.027 ng/mL (< 0.028)
[2021-12-08 02:00] LABS: Troponin I 0.024 ng/mL (< 0.028)
[2021-12-08 04:32] LABS: SARS-CoV-2 NAA Rapid Test Not Detected (NotDetected)
[2021-12-08 04:44] LABS: #Basophils 0.1 thou/uL (0.0-0.2); #Eosinphils 0.3 thou/uL (0.0-0.7); #Lymphocytes 2.6 thou/uL (1.20-3.40); #Monocytes 0.8 thou/uL (0.11-0.59); #Neutrophils 3.6 thou/uL (1.40-6.50); %Basophils 0.8 % (0.0-1.0); %Eosinophils 4.7 % (0.0-10.0); %Lymphocytes 34.9 % (21.0-51.0); %Monocytes 10.9 % (0.0-10.0); %Neutrophils 48.7 % (42.0-75.0); Hemoglobin 15.5 g/dL (14.0-18.0); Mean Corpuscular HGB CONC 34.2 g/dL (32.0-36.0); Mean Corpuscular Hemoglobin 29.2 pg (27.0-31.0); Mean Corpuscular Volume 85.6 fL (78.0-98.0); Mean Platelet Volume 7.3 fL (7.4-10.4); Platelet Count 202 thou/uL (130-400); RBC Distribution Width 12.3 % (11.5-14.5); White Blood Cell (WBC) Count 7.4 thou/uL (4.8-10.8)
[2021-12-08 05:11] LABS: Anion Gap 15 mmol/L (10-20); BUN (Urea Nitrogen) 21 mg/dL (8.4-25.7); Calc. Creatinine Clearance 132 mL/min (70-130); Calcium 9.1 mg/dL (7.8-10.44); Carbon Dioxide 25 mmol/L (22-29); Chloride 103 mmol/L (98-107); Estimated GFR 80; Glucose 132 mg/dL (70-105); Magnesium 2.3 mg/dL (1.6-2.6); Potassium 4.1 mmol/L (3.5-5.1); Sodium 139 mmol/L (136-145)
[2021-12-08] MEDS ORDERED: Regadenoson 0.4 MG/5 ML SYRINGE ONE (08:51)
[2021-12-08] MEDS: Enoxaparin Sodium 40 MG/0.4 ML SYRINGE SC SCH (13:30)
[2021-12-08] MEDS: Aspirin Chewable 81 MG TAB PO SCH (13:35)
[2021-12-08] MEDS ORDERED: Ergocalciferol 1.25 MG(50,000 UNITS) CAP PO SCH (18:00)
[2021-12-08] MEDS ORDERED: predniSONE 20 MG TAB PO SCH (18:45)
[2021-12-08] MEDS: Losartan 25 MG TAB PO SCH (19:39)
[2021-12-08] MEDS: Mometasone 200 MCG/Formoterol 5 MCG 120 PUFF INHALER INH SCH (19:55)
[2021-12-08] MEDS ORDERED: Flecainide 50 MG TAB PO SCH (21:00)
[2021-12-09 05:26] LABS: Anion Gap 15 mmol/L (10-20); BUN (Urea Nitrogen) 21 mg/dL (8.4-25.7); Calc. Creatinine Clearance 168 mL/min (70-130); Calcium 9.5 mg/dL (7.8-10.44); Carbon Dioxide 22 mmol/L (22-29); Cardiac Risk 4.4 (Less than 4.5); Chloride 104 mmol/L (98-107); Cholesterol 169 mg/dl (< 200 Desired); Estimated GFR 100; Glucose 186 mg/dL (70-105); HDL Cholesterol 38 mg/dL (>60 Neg Risk); LDL Cholesterol, Calculated 117 mg/dL; Potassium 4.9 mmol/L (3.5-5.1); Sodium 136 mmol/L (136-145); Triglycerides 69 mg/dL (Less than 150)
[2021-12-09] MEDS: Mometasone 200 MCG/Formoterol 5 MCG 120 PUFF INHALER INH SCH ×2 (06:43→19:35)
[2021-12-09] MEDS: Aspirin Chewable 81 MG TAB PO SCH (07:53)
[2021-12-09] MEDS: Enoxaparin Sodium 40 MG/0.4 ML SYRINGE SC SCH (07:53)
[2021-12-09] MEDS: Empagliflozin 10 MG TAB PO SCH (07:54)
[2021-12-09] MEDS: predniSONE 20 MG TAB PO SCH (07:54)
[2021-12-09] MEDS ORDERED: Dextrose 5% in Water 1,000 ML IV PRN (12:08)
[2021-12-09] MEDS ORDERED: Dextrose 50% Abboject 50 ML SYRINGE SLOW IVP PRN (12:08)
[2021-12-09] MEDS ORDERED: HumaLOG 300 UNITS/3 ML VIAL SC PRN (12:08)
[2021-12-09] MEDS ORDERED: Communication Order-Pharmacy FS SCH (19:15)
[2021-12-09] MEDS: Losartan 25 MG TAB PO SCH (20:54)
[2021-12-10] MEDS ORDERED: Sodium Chloride 0.9% 500 ML IV SCH ×2 (00:01→08:45)
[2021-12-10] MEDS: Aspirin Chewable 81 MG TAB PO SCH (05:30)
[2021-12-10] MEDS ORDERED: Nitroglycerin 100MG/250ML BOT 250 ML ONE (06:50)
[2021-12-10] MEDS ORDERED: Verapamil 5 MG/2 ML VIAL ONE (06:50)
[2021-12-10] MEDS ORDERED: Heparin 10,000 UNITS/ 10 ML VIAL ONE (06:50)
[2021-12-10] MEDS: Mometasone 200 MCG/Formoterol 5 MCG 120 PUFF INHALER INH SCH (07:02)
[2021-12-10] MEDS ORDERED: Midazolam HCl 2 mg/2 ml Vial ONE (07:39)
[2021-12-10] MEDS ORDERED: Fentanyl 100 MCG/2 ML VIAL ONE (07:40)
[2021-12-10] MEDS ORDERED: Sodium Chloride 0.9% 200 ML IV PRN (08:32)
[2021-12-10] MEDS: predniSONE 20 MG TAB PO SCH ×2 (09:32→09:49)
[2021-12-10] MEDS: Empagliflozin 10 MG TAB PO SCH (09:33)
[2021-12-10] MEDS ORDERED: predniSONE 20 MG TAB PO SCH (09:45)
[2021-12-10 11:36] VITALS: TEMP 98.1
[2021-12-10] MEDS ORDERED: Iopamidol 370 76% 100 ML VIAL ONE (15:03)
[2021-12-10 16:00] VITALS: BP 198/90
== END 2021-12-10 15:55 | disposition home or self-care (01) | DRG 202 ==
LOC: ERS 18:36 → 2SW 21:15 → OBSVTOIN 12-09 09:20
PROVIDERS: ADMIT Internal Medicine; ATTEND Internal Medicine
PROC: 4A023N7 Measurement of Cardiac Sampling and Pressure, Left Heart, Percutaneous Approach (ICD-10-PCS; principal; 2021-12-10)
PROC: B2111ZZ Fluoroscopy of Multiple Coronary Arteries using Low Osmolar Contrast (ICD-10-PCS; 2021-12-10)
PROC: B2151ZZ Fluoroscopy of Left Heart using Low Osmolar Contrast (ICD-10-PCS; 2021-12-10)
DX: J20.9 Acute bronchitis, unspecified (principal); I50.22 Chronic systolic (congestive) heart failure; Z20.822 Contact with and (suspected) exposure to COVID-19; E11.9 Type 2 diabetes mellitus without complications; I11.0 Hypertensive heart disease with heart failure; H54.40 Blindness, one eye, unspecified eye; K21.9 Gastro-esophageal reflux disease without esophagitis; E66.9 Obesity, unspecified; R94.39 Abnormal result of other cardiovascular function study; I48.0 Paroxysmal atrial fibrillation; I49.3 Ventricular premature depolarization; I49.1 Atrial premature depolarization; G47.33 Obstructive sleep apnea (adult) (pediatric); R05.3 Chronic cough; Z88.8 Allergy status to other drugs, medicaments and biological substances; Z86.16 Personal history of COVID-19; Z79.899 Other long term (current) drug therapy; Z79.51 Long term (current) use of inhaled steroids; Z98.890 Other specified postprocedural states; Z68.37 Body mass index [BMI] 37.0-37.9, adult; Z88.5 Allergy status to narcotic agent; Z89.421 Acquired absence of other right toe(s); Z57.5 Occupational exposure to toxic agents in other industries
CPT/HCPCS: 36415; 36416; 71045; 78452; 80048; 80053; 80061; 83036; 83690; 83735; 83880; 84484; 85025; 85379; 93005; 93017; 93306; 93458; 93798; 94760; 96372; 96374; 99152; A9500; C1769; C1894; G0378; J1644; J1650; J1940; J2250; J2785; J3010; J7030; J7512; Q9967; U0002

== ENCOUNTER 2023-05-15 07:58 | Inpatient (IN) | payer BC ==
[2023-05-15 08:26] LABS: #Eosinphils 0.2 thou/uL (0.0-0.7); #Monocytes 0.5 thou/uL (0.11-0.59); #Neutrophils 4.3 thou/uL (1.40-6.50); %Basophils 0.4 % (0.0-1.0); %Lymphocytes 31.9 % (21.0-51.0); %Monocytes 6.8 % (0.0-10.0); %Neutrophils 58.5 % (42.0-75.0); Hematocrit 45.8 % (42.0-52.0); Hemoglobin 15.5 g/dL (14.0-18.0); Mean Corpuscular HGB CONC 33.8 g/dL (32.0-36.0); Mean Corpuscular Hemoglobin 28.5 pg (27.0-31.0); Mean Corpuscular Volume 84.2 fl (78.0-98.0); Mean Platelet Volume 9.4 fL (7.4-10.4); Platelet Count 196 10x3/uL (130-400); RBC Distribution Width 13.2 % (11.5-14.5); Red Blood Cell (RBC) Count 5.44 mill/uL (4.70-6.10); White Blood Cell (WBC) Count 7.4 10x3/uL (4.8-10.8)
[2023-05-15] MEDS ORDERED: Enoxaparin 100 MG (1 mL) SYRINGE ONE (08:42)
[2023-05-15] MEDS ORDERED: Aspirin Chewable 81 MG TAB ONE (08:42)
[2023-05-15] MEDS ORDERED: Enoxaparin 30 MG (0.3 mL) SYRINGE ONE (08:42)
[2023-05-15] MEDS ORDERED: dilTIAZem 25 MG/5 ML VIAL ONE ×2 (08:43→09:41)
[2023-05-15 08:49] LABS: ALT (SGPT) 34 U/L (8-55); AST (SGOT) 21 U/L (5-34); Albumin 4.6 g/dL (3.5-5.0); Alkaline Phosphatase 67 U/L (40-110); Anion Gap 12 mmol/L (10-20); BUN (Urea Nitrogen) 19 mg/dL (8.4-25.7); Bilirubin, Total 1.1 mg/dL (0.2-1.2); Calc. Creatinine Clearance 0 mL/min (70-130); Calcium 9.2 mg/dL (7.8-10.44); Carbon Dioxide 22 mmol/L (22-29); Chloride 108 mmol/L (98-107); Estimated GFR 100; Globulin 2.5 g/dL (2.4-3.5); Glucose 116 mg/dL (70-105); Potassium 4.3 mmol/L (3.5-5.1); Protein, Total 7.1 g/dL (6.0-8.3); Sodium 138 mmol/L (136-145)
[2023-05-15 08:52] LABS: Troponin I 0.139 ng/mL (< 0.028)
[2023-05-15] MEDS ORDERED: dilTIAZem 125 MG/25 ML SDV ONE ×2 (09:41→09:43)
[2023-05-15] MEDS ORDERED: Ondansetron PF 4 MG/2 ML Vial IVP PRN (10:37)
[2023-05-15] MEDS ORDERED: Acetaminophen 325 MG TAB PO PRN (10:37)
[2023-05-15] MEDS ORDERED: Bisacodyl 5 MG TAB PO PRN (10:37)
[2023-05-15] MEDS ORDERED: dilTIAZem 125 MG in Sodium Chloride 0.9% 100 ML IVPB SCH ×2 (10:45→11:15)
[2023-05-15] MEDS ORDERED: dilTIAZem 125 MG, Admixture Fee 1 EACH in Sodium Chloride 0.9% 100 ML IVPB SCH (11:00)
[2023-05-15 11:31] LABS: Troponin I 0.126 ng/mL (< 0.028)
[2023-05-15 13:31] VITALS: BMI 38.4
[2023-05-15 14:04] LABS: Troponin I 0.124 ng/mL (< 0.028)
[2023-05-15] MEDS: Enoxaparin 30 MG (0.3 mL) SYRINGE SC SCH (20:42)
[2023-05-15] MEDS: Digoxin 0.5 MG/2 ML AMP SLOW IVP SCH (20:42)
[2023-05-15] MEDS: Enoxaparin 100 MG (1 mL) SYRINGE SC SCH (20:42)
[2023-05-15] MEDS: Flecainide 50 MG TAB PO SCH (20:43)
[2023-05-15] MEDS ORDERED: Enoxaparin 120 MG/0.8 ML SYRINGE SC SCH (21:00)
[2023-05-16 05:09] LABS: #Basophils 0.1 thou/uL (0.0-0.2); #Eosinphils 0.2 thou/uL (0.0-0.7); #Monocytes 0.4 thou/uL (0.11-0.59); #Neutrophils 3.2 thou/uL (1.40-6.50); %Basophils 0.8 % (0.0-1.0); %Eosinophils 2.5 % (0.0-10.0); %Lymphocytes 34.2 % (21.0-51.0); %Monocytes 7.3 % (0.0-10.0); %Neutrophils 54.9 % (42.0-75.0); Hemoglobin 14.7 g/dL (14.0-18.0); Mean Corpuscular HGB CONC 33.4 g/dL (32.0-36.0); Mean Corpuscular Hemoglobin 28.3 pg (27.0-31.0); Mean Corpuscular Volume 84.8 fl (78.0-98.0); Mean Platelet Volume 9.4 fL (7.4-10.4); Platelet Count 186 10x3/uL (130-400); RBC Distribution Width 13.2 % (11.5-14.5); Red Blood Cell (RBC) Count 5.19 mill/uL (4.70-6.10); White Blood Cell (WBC) Count 5.9 10x3/uL (4.8-10.8)
[2023-05-16 05:30] LABS: Anion Gap 12 mmol/L (10-20); BUN (Urea Nitrogen) 20 mg/dL (8.4-25.7); Calc. Creatinine Clearance 172 mL/min (70-130); Calcium 8.8 mg/dL (7.8-10.44); Carbon Dioxide 23 mmol/L (22-29); Chloride 107 mmol/L (98-107); Estimated GFR 100; Glucose 104 mg/dL (70-105); Potassium 4.3 mmol/L (3.5-5.1); Sodium 138 mmol/L (136-145)
[2023-05-16] MEDS: dilTIAZem 125 MG in Sodium Chloride 0.9% 100 ML IVPB SCH (06:03)
[2023-05-17] MEDS ORDERED: Lidocaine 1% PF 5 ML VIAL ONE (13:04)
[2023-05-17] MEDS ORDERED: PROPOFOL 200 MG/20 ML VIAL ONE (13:04)
[2023-05-17] MEDS ORDERED: Ondansetron HCl/PF 4 MG/2 ML Vial IVP PRN (13:20)
[2023-05-17] MEDS ORDERED: Promethazine HCl 25 MG/ML VIAL IM PRN (13:20)
[2023-05-17 16:16] VITALS: BP 162/87; TEMP 97.9
[2023-05-17] MEDS ORDERED: Apixaban 5 MG TAB PO SCH (21:00)
== END 2023-05-17 18:18 | disposition home or self-care (01) | DRG 281 ==
LOC: ERS 07:58 → ERHOLD 09:59 → 2SW 12:44 → OBSVTOIN 05-16 09:15
PROVIDERS: ADMIT Internal Medicine; ATTEND Emergency Medicine
PROC: 5A2204Z Restoration of Cardiac Rhythm, Single (ICD-10-PCS; principal; 2023-05-17)
PROC: B24BZZ4 Ultrasonography of Heart with Aorta, Transesophageal (ICD-10-PCS; 2023-05-17)
DX: I48.0 Paroxysmal atrial fibrillation (principal); I21.A1 Myocardial infarction type 2; I50.32 Chronic diastolic (congestive) heart failure; Z79.01 Long term (current) use of anticoagulants; I11.0 Hypertensive heart disease with heart failure; K21.9 Gastro-esophageal reflux disease without esophagitis; I48.19 Other persistent atrial fibrillation; H54.40 Blindness, one eye, unspecified eye; E66.9 Obesity, unspecified; Z68.38 Body mass index [BMI] 38.0-38.9, adult; Z98.890 Other specified postprocedural states; Z88.5 Allergy status to narcotic agent; Z88.8 Allergy status to other drugs, medicaments and biological substances
CPT/HCPCS: 36415; 71045; 80048; 80053; 83880; 84443; 84484; 85025; 92960; 93005; 93010; 93312; 94760; 96372; 96374; 96375; 96376; G0378; J1160; J1650; J2704; J3490